=== PATIENT | female | born 1995 | race Caucasian/White ===

== ENCOUNTER 2017-02-07 22:38 | Emergency (ER) ==
[2017-02-07 22:45] VITALS: BP 133/70
[2017-02-07 23:20] LABS: MANUAL DIFF NEEDED? NO; URINE CULTURE NEEDED? NO; URINE MICRO REVIEW NEEDED? NO; URINE SOURCE CLEAN CATCH
[2017-02-07 23:25] LABS: BASO% 0.3 % (0.0-0.8); EOS# 0.12 X1000 (0.0-0.7); EOS% 1.1 % (0.0-10.0); HEMATOCRIT 40.5 % (37.0-47.0); HEMOGLOBIN 13.6 g/dL (12.0-16.0); IMM GRAN# 0.02 X1000 (0.0-0.04); IMM GRAN% 0.2 % (0.0-0.5); LYMPH# 3.17 X1000 (1.2-3.4); LYMPH% 29.7 % (20.5-51.1); MCH 29.1 PG (27-31); MCHC 33.6 g/dL (33-37); MCV 86.7 FL (81-99); MONO# 0.56 X1000 (0.11-0.59); MONO% 5.3 % (1.7-9.3); MPV 11.6 FL (7.4-10.4); NEUT% 63.4 % (42.2-75.2); PLT 298 X1000 (130-400); RBC 4.67 XMIL (4.2-5.4)
[2017-02-07 23:27] LABS: BILIRUBIN URINE NEGATIVE (NEGATIVE); BLOOD URINE NEGATIVE (NEGATIVE); COLOR YELLOW; GLUCOSE URINE NEGATIVE (NEGATIVE); LEUKOCYTES URINE NEGATIVE (NEGATIVE); NITRITE URINE NEGATIVE (NEGATIVE); PROTEIN URINE NEGATIVE (NEGATIVE); SP GRAVITY URINE 1.025; TURBIDITY URINE CLEAR (CLEAR); UROBILINOGEN URINE NORMAL (NORMAL)
[2017-02-07 23:29] LABS: UR EPITHELIAL CELLS <10 /HPF (<10); URINE BACTERIA 1+ /HPF; URINE RBC <10 /HPF (<10); URINE WBC <10 /HPF (<10)
[2017-02-07 23:54] LABS: AGAP 12; ALKALINE PHOSPHATASE 58 U/L (32-104); AMYLASE 37 U/L (20-200); BUN 10 mg/dL (8-22); CALCIUM 9.3 mg/dL (8.8-10.2); CHLORIDE 102 mmol/L (98-107); COSMO 277; GOT 13 U/L (10-30); GPT 13 U/L (10-36); LIPASE 14 U/L (13-60); POTASSIUM 4.3 mmol/L (3.5-5.1); SODIUM 139 mmol/L (136-145); TCO2 25 mmol/L (25-35); TOTAL BILIRUBIN < 0.10 mg/dL (0.20-1.00); TOTAL PROTEIN 6.9 g/dL (6.3-8.3)
== END 2017-02-07 23:41 | disposition left against medical advice (07) ==
LOC: ED 22:38
DX: R10.9 Unspecified abdominal pain (principal); R11.10 Vomiting, unspecified
CPT/HCPCS: 80053; 81001; 82150; 83690; 85025

== ENCOUNTER 2017-02-15 02:01 | Emergency (ER) ==
[2017-02-15 02:09] VITALS: BP 124/78
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
== END 2017-02-15 03:05 | disposition home or self-care (01) ==
LOC: ED 02:01
DX: O26.891 Other specified pregnancy related conditions, first trimester (principal); Z3A.01 Less than 8 weeks gestation of pregnancy; R10.9 Unspecified abdominal pain; R22.32 Localized swelling, mass and lump, left upper limb; Y04.0XXA Assault by unarmed brawl or fight, initial encounter; M79.1 Myalgia; R51 Headache; F31.9 Bipolar disorder, unspecified; O99.331 Smoking (tobacco) complicating pregnancy, first trimester; F17.210 Nicotine dependence, cigarettes, uncomplicated